=== PATIENT | male | born 1980 | race Caucasian/White ===

== ENCOUNTER 2020-03-01 12:54 | Emergency (ER) | payer OTHER, SELFPAY ==
[2020-03-01 13:12] VITALS: BP 139/74; PULSE 83; RESP 17; TEMP 37; O2SAT 96; BMI 21.9
--- NOTE | 2020-03-01 13:15 | ED.SKABFB ---
HPI - Skin/Abscess/Foreign Bdy General Chief complaint: Skin/Abscess/Foreign Body Stated complaint: growth on nose,headache Time Seen by Provider: 03/01/20 13:08 Source: patient Mode of arrival: ambulatory Limitations: no limitations History of Present Illness HPI narrative: bump to bridge of the nose x several months but now more painful, swollen and tender. No fever/chills. Trying warm compresses with no improvement. Related Data Allergies Allergy/AdvReac Type Severity Reaction Status Date / Time No Known Allergies Allergy Verified 03/01/20 13:15 Review of Systems Review of Systems: Yes all other systems are reviewed and are negative Constitutional: Constitutional: Reports no additional constitutional complaints, Denies body ache(s), Denies chills, Denies fever(s), Denies headache(s) and Denies weakness Eyes: Eyes: Reports no additional eye complaints and Denies change in vision ENT: Reports system reviewed and no additional complaints, except as documented, Denies dizziness, Denies headache(s), Denies nasal congestion, Denies nasal discharge and Denies neck pain Cardiovascular: Cardiovascular: Reports no additional cardiovascular complaints, Denies chest pain, Denies leg edema and Denies dyspnea Respiratory: Respiratory: Reports no additional respiratory complaints, Denies cough and Denies dyspnea Gastrointestinal: Gastrointestinal: Reports no additional gastrointestinal complaints, Denies abdominal pain, Denies diarrhea, Denies nausea and Denies vomiting Genitourinary: Genitourinary: Denies urinary incontinence Musculoskeletal: Musculoskeletal: Reports no additional musculoskeletal complaints, Denies back pain, Denies arthralgias, Denies joint swelling, Denies neck pain, Denies numbness and Denies tingling Integumentary/Breasts: Skin/Breast: Reports system reviewed and no additional complaints, except as docu and Denies rash Neurologic: Reports system reviewed and no additional complaints, except as documented, Denies Abnormal speech present, Denies dizziness, Denies headache(s), Denies numbness, Denies tingling and Denies weakness PMFSH Past Medical History Attestation statement: The following information was validated with the patient. Source: obtained from family and nursing notes reviewed Medical History No known health problems Social History Social History Advance Directives: No Advance Directives Information Provided: Yes Physical Exam Vital Signs and I&O and Narrative: Vital Signs and I&O: Vital Signs Temp 98.6 F 03/01/20 13:12 Pulse 83 03/01/20 13:12 Resp 17 03/01/20 13:12 BP 139/74 03/01/20 13:12 Pulse Ox 96 03/01/20 13:12 Intake & Output 02/29/20 03/01/20 03/01/20 18:59 06:59 18:59 Weight 63.503 kg Body Mass Index 21.9 Const: General: cooperative, healthy appearing, comfortable and no acute distress Orientation/consciousness: patient oriented x3 Limitations: no limitations HENMT: Head: Yes normal to inspection Ears: hearing grossly normal bilaterally General nose exam: Normal external nose present Face and sinus: Yes normal facial exam Mouth: Normal oral and palatal mucosa present Throat: Yes posterior oropharynx normal Eyes: General: appearance normal, both eyes and all related structures Pupils: Equal, round and reactive pupils present Neck: Neck: Yes normal visual inspection Chest: Chest palpation & inspection: normal inspection of the chest Resp: Effort & Inspection: normal respiratory effort Auscultation: clear to auscultation bilaterally Cardio: Rate: regular rate Rhythm: regular rhythm Peripheral pulses: Peripheral pulses 2+ throughout GI: Inspection: Yes normal to inspection Palpation (GI): Soft to palpation and nontender Auscultation: normal bowel sounds Back/Spine/Pelvis: Thoracic/Lumbar Spine: thoracic and lumbar spine normal to inspection Skin: Other: To the bridge of the nose there is a circular lump which is firm with mild erythema and tenderness. Not fluctuant. Approximately 2-3 mm in size. General skin exam: no rashes or lesions noted Neuro: General: patient oriented x3, no focal motor deficits and normal sensation to monofilament Cranial nerves: Yes Equal, round and reactive pupils present Cognition (Neuro): normal cognition Speech: No Abnormal speech present Gait exam (Neuro): Normal gait present Motor exam (neuro): 5/5 motor strength present throughout Extrem: General: Yes normal to inspection Procedures Abscess I/D Site: face Local Anesthetic: lidocaine 2% Technique: incised with blade Sent for culture/gram staining?: No Irrigation: Yes Packing used?: none MDM - Skin/Abscess/Foreign Bdy MDM Narrative Medical decision making narrative: See I and D note. More of a sebaceous cyst. Discussed with patient may recur. He can follow-up with surgery of this does happen. Reviewed worrisome signs and symptoms and when to return to the emergency department. Comfortable discharge home. Discharge Plan Discharge Clinical Impression: Sebaceous cyst Patient Disposition: Home, Self-Care Instructions: Cyst (ED) Additional Instructions: Apply antibiotic ointment daily and keep covered for 2-3 days with a bandaid This may reoccur and if that does you may see a surgeon Referrals: Malena Luevano MD [Physician] - 2 days (only if it happens again) Interventions: ED Discharge Assessment Last Done: 03/01/20 13:56 Discharge Date/Time: 03/01/20 14:06
[2020-03-01] MEDS: Lidocaine HCl 2 % MPF 5 ML VIAL SUBCUT (13:21)
== END 2020-03-01 14:06 | disposition home or self-care (01) ==
PROVIDERS: Emergency Provider Internal Medicine; PCP Pediatrics
DX: L72.3 Sebaceous cyst (principal)
CPT/HCPCS: 10060; 99283; 99284

== ENCOUNTER 2021-01-31 09:25 | Emergency (ER) | payer OTHER, SELFPAY ==
[2021-01-31 09:37] VITALS: BP 109/79; PULSE 65; RESP 18; TEMP 36.6; O2SAT 98; BMI 24.3
--- NOTE | 2021-01-31 09:44 | ED.SKABFB ---
HPI - Skin/Abscess/Foreign Bdy General Chief complaint: Skin/Abscess/Foreign Body Stated complaint: EYE INFECTION Time Seen by Provider: 01/31/21 09:44 Source: patient Mode of arrival: ambulatory Limitations: no limitations History of Present Illness HPI narrative: 41 y/o male presents with a painful cyst on the upper bridge of his nose. He has had a small cyst in that area for several years. He reports over the last 4 days it has gotten significantly bigger, more tender and red. No fevers. Never been infected before. MD complaint: abscess/boil Onset (ago): day(s) (4) Tetanus up to date: yes Location: face Severity: moderate Severity scale (1-10): 6 Quality: aching Pain Consistency: constant Relieving factors: other (warm compresses) Exacerbating factors: palpation Context: none Associated symptoms: denies other symptoms Treatments prior to arrival: attempted to drain pus at home Related Data Previous Rx's Medication Instructions Recorded cephalexin 500 mg capsule 500 mg PO Q6H 7 Days #28 cap 01/31/21 Allergies Allergy/AdvReac Type Severity Reaction Status Date / Time No Known Allergies Allergy Verified 03/01/20 13:15 Review of Systems Review of Systems: Constitutional: No Fever, No Chills Eyes: No Eye Pain, No Swelling, No Redness Cardiovascular: No Chest Pain, No SOB Respiratory: No Cough, No Sputum Gastrointestinal: No Nausea, No Vomiting Musculoskeletal: No joint pain, No Myalgias Skin: + Skin Lesions, No rash Neuro: No Dizziness, No Headache Heme/Lymph: No Bruising PMFSH Past Medical History Medical History No known health problems Social History Social History Advance Directives: No Physical Exam Vital Signs: Vital Signs: Last Vital Signs Temp 97.8 F 01/31/21 09:37 Pulse 65 01/31/21 09:37 Resp 18 01/31/21 09:37 BP 109/79 01/31/21 09:37 Pulse Ox 98 01/31/21 09:37 Body Mass Index 24.3 Appearance: Alert. Oriented X3. No acute distress. HEENT: upper bridge of the nose on the left side is a 1.5 cm tender raised lesion with central fluctuance, overlying erythema and warmth. CVS: Normal heart rate and rhythm. Pulses normal. Respiratory: No respiratory distress. Speaks in complete sentences Skin: Skin warm and dry. Normal skin color. Normal skin turgor. No rashes. Extremities: atraumatic, no swelling Neuro: Oriented X 3. No motor deficit. No sensory deficit. Course Course Course Narrative: 41 y/o male presents with tender, red lesion on the bridge of his nose x4 days. Exam is consistent with infected sebaceous cyst. Requesting I&D. Counseled on need for Derm follow up for possible excision. Given there appears to be infection will drain and start abx for mild cellulitis. Reevaluation(s) Reevaluation #1: Tolerated well. Stable for d/c home with abx and derm f/u. Procedures Abscess I/D Site: face Local Anesthetic: lidocaine 2% Amount of anesthesia used (mL): 1 Technique: incised with blade Sent for culture/gram staining?: No Irrigation: Yes Packing used?: none Complications: bleeding Critical Care Time Critical Care Time Critical Care Time: No Discharge Plan Discharge Clinical Impression: Abscess of skin or subcutaneous tissue Qualifiers: Site of cutaneous abscess: face Qualified Code(s): L02.01 - Cutaneous abscess of face Patient Disposition: Home, Self-Care Instructions: Abscess Incision and Drainage (DC) Additional Instructions: Take the prescribed antibiotic as directed. Continue to use warm compresses to the area several times per day. Recommend following up with a Photo Tube As[employer]er for further evaluation and possible excision. If you develop worsening pain, swelling, redness, or develop fevers come back to the ER for further evaluation. Prescriptions: New cephalexin 500 mg capsule 500 mg PO Q6H 7 Days Qty: 28 RF: 0 Referrals: Gricel Cooper PA-C [[facility]] - 2 weeks (infected cyst)
[2021-01-31] MEDS: Lidocaine HCl 2 % MPF 5 ML VIAL INFILTRATI (09:55)
== END 2021-01-31 10:21 | disposition home or self-care (01) ==
PROVIDERS: Emergency Provider Emergency Medicine
DX: J34.0 Abscess, furuncle and carbuncle of nose (principal)
CPT/HCPCS: 10060; 99283; 99284

== ENCOUNTER 2021-02-11 08:42 | Emergency (ER) | payer OTHER, SELFPAY ==
--- NOTE | ~2021-02-11 | XR_ITS ---
EXAMINATION: XR FOOT, LEFT CLINICAL INFORMATION: Pain COMPARISON: None TECHNIQUE: AP, lateral, and oblique views of the left foot. FINDINGS: There is no evidence of acute fracture or dislocation of the left foot. Left foot joint spaces are maintained. No significant soft tissue swelling appreciated. XR/XR foot LT min 3V IMPRESSION: No acute fracture or dislocation of the left foot.
[2021-02-11 08:45] VITALS: BP 115/69; PULSE 77; RESP 18; TEMP 36.9; O2SAT 97; BMI 23.5
--- NOTE | 2021-02-11 09:30 | ED_ITS ---
HPI - Extremity Injury (Lower) General Chief Complaint: Extremity Problem Stated Complaint: lt ft toe pain Time Seen by Provider: 02/11/21 09:27 Source: patient Mode of arrival: ambulatory Limitations: no limitations History of Present Illness complaint: foot injury Injury: Right: foot and toes (Second and 3rd toes) Type of Injury: other (Twist injury) Place: street/outdoors Severity: moderate Relieving factors: NSAID (Mild relief with NSAIDs) Exacerbating factors: weight bearing, movement and palpation Context: running Associated symptoms: swelling and ambulatory Other symptoms: none Treatments prior to arrival: NSAIDS Related Data Previous Rx's Medication Instructions Recorded cephalexin 500 mg capsule 500 mg PO Q6H 7 Days #28 cap 01/31/21 Allergies Allergy/AdvReac Type Severity Reaction Status Date / Time No Known Allergies Allergy Verified 03/01/20 13:15 Review of Systems Review of Systems: Constitutional : No Weight loss, No Fever, No Chills, No Night Sweats, No Fatigue, No Malaise ENT/Mouth : No Hearing loss, No Ear Pain, No Nasal Congestion, No Sinus Pain, No Hoarseness, No sore throat, No Rhinorrhea, No Swallowing Difficulty Eyes: No Eye Pain, No Swelling, No Redness, No Foreign Body, No Discharge, No Vision Changes Cardiovascular : No Chest Pain, No SOB, No Dyspnea on Exertion, No Orthopnea, No Edema, No Palpitations Respiratory : No Cough, No Sputum, No Wheezing, No Smoke Exposure, No Dyspnea Gastrointestinal : No Nausea, No Vomiting, No Diarrhea, No Constipation, No abdominal Pain, No Hematochezia, No Melena Genitourinary : no irregular bleeding, No Dysuria, No Urinary Frequency, No Hematuria, No Urinary Incontinence, No Urgency, No Flank Pain, No Urinary Flow Changes, No Hesitancy Musculoskeletal : Positive right foot/toes joint pain, No Myalgias, No Joint Swelling Skin : No Skin Lesions, No rash Neuro : No Weakness, No Numbness, No Paresthesias, No Loss of Consciousness, No Dizziness, No Headache Psych : No Anxiety/Panic, No Depression, No SI/HI/AH/VH, No Social Issues, Heme/Lymph: No Bruising, No Bleeding,No Lymphadenopathy Endocrine : No Polyuria, No Polydipsia, No Temperature Intolerance Yes all other systems are reviewed and are negative [facility] Past Medical History Attestation statement: The following information was validated with the patient. Medical History No known health problems Social History Social History Advance Directives: No Advance Directives Information Provided: No Physical Exam Vital Signs: Vital Signs: Last Vital Signs Temp 98.4 F 02/11/21 08:45 Pulse 77 02/11/21 08:45 Resp 18 02/11/21 08:45 BP 115/69 02/11/21 08:45 Pulse Ox 97 02/11/21 08:45 Body Mass Index 23.5 vital signs have been reviewed as normal and appeared to be correct. Blood pressure normal. Heart rate normal. Respiration rate normal. Temperature normal. Oxygen saturation normal. Appearance: Alert. Oriented X3. No acute distress. Head: Normal external exam. Normocephalic. Atraumatic. Eyes: PERRLA. EOMI. Conjunctiva and sclera normal. Eyelids normal. ENT: Pharynx normal. Uvula midline. Neck: Normal inspection. Neck supple. FROM. CVS: Normal heart rate and rhythm. Respiratory: No respiratory distress. Painless inspiration. Back: Full range of motion noted. No rashes/lesion/induration/fluctuance or signs of infection noted. Skin: Skin warm and dry. Normal skin color. Normal skin turgor. No rashes/ lesions/lacerations noted. Extremities: Patient with tenderness so patient to left foot at 2/3 digits with ecchymosis noted. Patient with mild tenderness of patient to calcaneus aspect of the left foot. No obvious deformities. Patient has full range of motion of all toe/foot and ankle joint. No obvious ligamentous injury is noted. Achilles tendon is intact negative Treviño test. No signs of infection. Otherwise all other extremities exhibit normal range of motion and nontender. Neuro: Oriented X 3. No motor deficit. No sensory deficit. Reflexes normal. Normal steady gait. No focal neuro deficits noted. Vascular: + radial pulses/+ 2 distal pedal pulses/+2 dorsalis pedis b/l. Normal cap refill. No cyanosis noted to upper extremity nails and lower extremity toes nails. Course Course Course Narrative: 41-year-old male presenting to the ED with complaints of left 2/3 digit toe pain and calcaneus pain after he had a twist injury when he was running on Thursday since then has been having pain and ecchymosis. He has been taking Motrin and provides mild relief. Denies any other injuries complaints or concerns at this time. On exam patient has tenderness palpation to left foot at the 2/3 digits and calcaneus aspect no obvious deformities and patient has full range of motion. No signs of infection and no ligamentous injury or tendon rupture. Achilles tendon is intact. X-ray obtained and negative for any acute processes. Patient most likely left foot sprain strain with ecchymosis. Will DC home with symptomatic treatment instructions return if any new or worsening symptoms to follow up with primary care provider. Patient understands agrees with this plan. MDM - Extremity Injury (Lower) Medical Records Attestation: I reviewed the patient's medical records. Imaging Data Left foot x-ray: Attestation: I personally reviewed and interpreted this imaging study as follows: Radiologist's impression: FINDINGS: There is no evidence of acute fracture or dislocation of the left foot. Left foot joint spaces are maintained. No significant soft tissue swelling appreciated.? XR/XR foot LT min 3V IMPRESSION: No acute fracture or dislocation of the left foot. Discharge Plan Discharge Clinical Impression: Sprain of foot, left, Traumatic ecchymosis of left foot Patient Disposition: Home, Self-Care Instructions: Foot Sprain (ED), Foot Contusion (ED) Prescriptions: No Action cephalexin 500 mg capsule 500 mg PO Q6H 7 Days Qty: 28 RF: 0 Referrals: Ad Sharp MD [Primary Care Provider] - 2 days Stand Alone Forms: Work/School Release Print Language: Khmer
== END 2021-02-11 10:14 | disposition home or self-care (01) ==
PROVIDERS: Emergency Provider Emergency Medicine Emergency Medical Services; PCP Pediatrics
DX: S93.602A Unspecified sprain of left foot, initial encounter (principal); S90.32XA Contusion of left foot, initial encounter; M79.672 Pain in left foot; X58.XXXA Exposure to other specified factors, initial encounter; Y93.9 Activity, unspecified; Y92.9 Unspecified place or not applicable; Y99.9 Unspecified external cause status; Z79.899 Other long term (current) drug therapy
CPT/HCPCS: 73630; 99283

== ENCOUNTER 2021-03-29 08:06 | Emergency (ER) | payer OTHER, SELFPAY ==
[2021-03-29 08:28] VITALS: BP 117/81; PULSE 70; RESP 18; TEMP 36.6; O2SAT 97; BMI 23.6
[2021-03-29 08:50] LABS: MANUAL DIFF FLAG NO
[2021-03-29] MEDS: Lidocaine HCl Viscous 2 % 15 ML SOLUTION MUCOUS MEM (08:51)
[2021-03-29] MEDS: PHENobarb/Hyoscy/Atropine/Scop 10 ML ELIXIR PO (08:51)
[2021-03-29] MEDS: Magnesium Hydrox/Alum Hydrox 30 ML ORAL.SUSP PO (08:51)
[2021-03-29] MEDS: Famotidine/PF 20 MG/2 ML VIAL IVPUSH (08:51)
[2021-03-29 08:53] LABS: Basophils Absolute Auto 0.1 X10*3/uL (0.0-0.2); Basophils Percent Auto 0.9 % (0-2); Eosinophils Absolute Auto 0.3 X10*3/uL (0.0-0.4); Eosinophils Percent Auto 4.7 % (0-4); Hematocrit 39.3 % (42.0-52.0); Hemoglobin 13.5 g/dl (14.0-18.0); Imm Gran Abs Auto 0.01 X10*3/uL (0.00-0.03); Imm Gran Pct Auto 0.2 % (0.0-0.4); Lymphocytes Absolute Auto 1.5 X10*3/uL (1.2-4.9); Lymphocytes Percent Auto 26.4 % (20-40); Mean Corpuscular HGB Conc 34.4 g/dl (31.0-36.0); Mean Corpuscular Hemoglobin 30.1 pg (27.0-33.0); Mean Corpuscular Volume 87.7 fL (80.0-98.0); Mean Platelet Volume 8.7 fL (9.4-12.4); Monocytes Absolute Auto 0.4 X10*3/uL (0.1-1.2); Monocytes Percent Auto 7.7 % (2-11); Neutrophils Absolute Auto 3.5 x10*3/uL (2.0-8.3); Neutrophils Percent Auto 60.1 % (45-73); Platelet Count 281 X10*3/uL (160-400); Red Blood Count 4.48 X10*6/uL (4.60-5.80); Red Cell Distribution Width 11.9 % (11.0-16.0); White Blood Count 5.8 X10*3/uL (4.8-10.8)
[2021-03-29 09:07] LABS: Alanine Aminotransferase 12 U/L (0-40); Albumin Level 4.3 g/dL (3.5-5.0); Alkaline Phosphatase 64 U/L (39-117); Anion Gap 10 (12-20); Aspartate Amino Transferase 20 U/L (5-37); Bilirubin Direct 0.2 mg/dL (0.0-0.5); Bilirubin Total 0.4 mg/dL (0.0-1.0); Blood Urea Nitrogen 10 mg/dL (9-16); Calcium 9.1 mg/dL (8.4-10.2); Carbon Dioxide 25 mmol/L (22-29); Chloride 107 mmol/L (96-108); Creatinine Clr Calc Pharmacy 118.4; Estimated Glomerular Filt Rate > 60; Glucose Random 113 mg/dL (60-115); Lipase 26 U/L (8-78); Potassium 4.3 mmol/L (3.3-5.1); Sodium 138 mmol/L (135-145); Total Protein 6.7 g/dL (6.5-8.0)
--- NOTE | 2021-03-29 09:17 | ED.ABDPAIN ---
HPI - Abdominal Pain General Chief Complaint: Abdominal Pain Stated Complaint: abd pain Time Seen by Provider: 03/29/21 08:29 Source: patient Mode of arrival: ambulatory Limitations: no limitations History of Present Illness HPI narrative: 41-year-old male past medical history of GERD presents to the ED for right upper quadrant discomfort described as acid burning sensation with slight nausea. Patient having symptoms for the past 4 days. denies any fever, chills, lower abdominal pain, or any decrease in appetite. Patient denies any chest pain or shortness of breath. Patient denies any recent trauma. Related Data Home Medications Medication Instructions Recorded Confirmed buprenorphine 2 mg-naloxone 0.5 mg 1 strip SUBLINGUAL DAILY 03/29/21 03/29/21 sublingual film (Suboxone) Previous Rx's Medication Instructions Recorded cephalexin 500 mg capsule 500 mg PO Q6H 7 Days #28 cap 01/31/21 famotidine 20 mg tablet (Pepcid) 20 mg PO BID 20 Days #40 tab 03/29/21 Allergies Allergy/AdvReac Type Severity Reaction Status Date / Time No Known Allergies Allergy Verified 03/01/20 13:15 Review of Systems Review of Systems Yes all other systems are reviewed and are negative Constitutional: Reports as per HPI and Reports no additional constitutional complaints Eyes: Reports as per HPI and Reports no additional eye complaints Reports system reviewed and no additional complaints, except as documented and Reports as per HPI Cardiovascular: Reports as per HPI and Reports no additional cardiovascular complaints Respiratory: Reports as per HPI and Reports no additional respiratory complaints Gastrointestinal: Reports as per HPI, Reports no additional gastrointestinal complaints, Reports abdominal pain (Right upper quadrant) and Reports heartburn Genitourinary: Reports no additional male genitourinary complaints and Reports as per HPI Musculoskeletal: Reports no additional musculoskeletal complaints and Reports as per HPI Reports system reviewed and no additional complaints, except as documented and Reports as per HPI Psychiatric: Reports no additional psychiatric complaints and Reports as per HPI Physical Exam Vital Signs: Vital Signs: Last Vital Signs Temp 98.6 F 03/29/21 09:19 Pulse 51 03/29/21 09:19 Resp 14 03/29/21 09:19 BP 106/71 03/29/21 09:19 Pulse Ox 97 03/29/21 09:19 Body Mass Index 23.6 Const: General: cooperative, healthy appearing, comfortable, no acute distress, well developed, alert, awake and Physically active Orientation/consciousness: patient oriented x3 HENMT: Head: Yes normal to inspection, Yes No palpable skull fracture present, Yes normocephalic, Yes atraumatic and No abrasion Eyes: General: appearance normal, both eyes and all related structures Neck: Neck: Yes normal visual inspection, Yes full ROM, Yes no lymphadenopathy, Yes no meningeal signs, Yes trachea midline, Yes supple and No tender Chest: Chest palpation & inspection: normal inspection of the chest and normal palpation of entire chest wall Resp: Effort & Inspection: normal respiratory effort and able to speak in complete sentences Cardio: Jugular venous distension: no JVD Heart sounds: S1 normal heart sound present and S2 normal heart sound present GI: Inspection: Yes normal to inspection and No abdominal wall ecchymosis Palpation (GI): Soft to palpation, not firm, nontender, no guarding and not rigid : General: No CVA tenderness and Yes no CVA tenderness Back/Spine/Pelvis: Back: no CVA tenderness, No CVA tenderness and No back tenderness Skin: General skin exam: no rashes or lesions noted and elasticity normal Neuro: General: patient oriented x3, gait normal, no meningeal signs and CN's II-XI intact bilaterally Cranial nerves: Yes CN's II-XII intact bilaterally Extrem: General: Yes normal to inspection and Yes full ROM Psych: Appearance: grossly normal, well kempt and not disheveled Course Course Course Narrative: Patient does not have any abdominal tenderness. Right upper quadrant ultrasound bedside negative for any gallstones. Will treat as GERD. Labs ordered. Reevaluation(s) Reevaluation #1: Patient labs are normal. Liver and lipase normal. Abdomen re-evaluated and negative for any tenderness, rebound tenderness, Melton sign, McBurney, roving signs, guarding, rigidity, psoas, or obturator's sign. Patient feels better after GI cocktail. Patient to be discharged. Not suspect any cardiac etiology. No CT scan indicated. Time: 10:14 MDM - Abdominal Pain MDM Narrative Medical decision making narrative: GERD Lab Data Result diagrams: 03/29/21 08:43 03/29/21 08:43 Labs: Lab Results 03/29/21 03/29/21 Range/Units 08:43 08:43 WBC 5.8 (4.8-10.8) X10*3/uL RBC 4.48 L (4.60-5.80) X10*6/uL Hgb 13.5 L (14.0-18.0) g/dl Hct 39.3 L (42.0-52.0) % MCV 87.7 (80.0-98.0) fL MCH 30.1 (27.0-33.0) pg MCHC 34.4 (31.0-36.0) g/dl RDW 11.9 (11.0-16.0) % Plt Count 281 (160-400) X10*3/uL MPV 8.7 L (9.4-12.4) fL Immature Gran % (Auto) 0.2 (0.0-0.4) % Neut % (Auto) 60.1 (45-73) % Lymph % (Auto) 26.4 (20-40) % [place] % (Auto) 7.7 (2-11) % Eos % (Auto) 4.7 H (0-4) % Baso % (Auto) 0.9 (0-2) % Lymph # (Auto) 1.5 (1.2-4.9) X10*3/uL [place] # (Auto) 0.4 (0.1-1.2) X10*3/uL Eos # (Auto) 0.3 (0.0-0.4) X10*3/uL Baso # (Auto) 0.1 (0.0-0.2) X10*3/uL Abs Immat Gran (auto) 0.01 (0.00-0.03) X10*3/uL Absolute Neuts (auto) 3.5 (2.0-8.3) x10*3/uL Absolute Nucleated RBC 0.000 (0.0-0.012) X10*3/uL Nucleated RBC % (auto) 0.0 (0.0-0.2) /100WBC Sodium 138 (135-145) mmol/L Potassium 4.3 (3.3-5.1) mmol/L Chloride 107 (96-108) mmol/L Carbon Dioxide 25 (22-29) mmol/L Anion Gap 10 L (12-20) BUN 10 (9-16) mg/dL Creatinine 0.81 (0.5-1.4) mg/dL Estim Creat Clear Calc 118.4 Estimated GFR > 60 Random Glucose 113 (60-115) mg/dL Calcium 9.1 (8.4-10.2) mg/dL Total Bilirubin 0.4 (0.0-1.0) mg/dL Direct Bilirubin 0.2 (0.0-0.5) mg/dL AST 20 (5-37) U/L ALT 12 (0-40) U/L Alkaline Phosphatase 64 (39-117) U/L Total Protein 6.7 (6.5-8.0) g/dL Albumin 4.3 (3.5-5.0) g/dL Lipase 26 (8-78) U/L Discharge Plan Discharge Clinical Impression: Gastroesophageal reflux disease Patient Disposition: Home, Self-Care Instructions: Gastroesophageal Reflux Disease (ED) Additional Instructions: Return to the ED for worsening abdominal pain, green emesis, chest pain, shortness of breath, fever, chills, nausea, vomiting, lower abdominal pain, dysuria, hematuria, flank pain, or any other concerning symptoms. Please follow-up with primary care provider Prescriptions: New famotidine [Pepcid] 20 mg tablet 20 mg PO BID 20 Days Qty: 40 RF: 0 No Action cephalexin 500 mg capsule 500 mg PO Q6H 7 Days Qty: 28 RF: 0 buprenorphine-naloxone [Suboxone] 2-0.5 mg film 1 strip sublingual DAILY RF: 0 Interventions: ED Discharge Assessment Last Done: 03/29/21 10:46 Discharge Date/Time: 03/29/21 10:47 Print Language: Sami [facility] Past Medical History Medical History No known health problems Social History Social History Alcohol intake: never Patient Tobacco Use Status: Never used Tobacco Use of substances other than those prescribed or required for medical reasons: No Advance Directives: No
[2021-03-29 09:19] VITALS: BP 106/71; PULSE 51; RESP 14; TEMP 37; O2SAT 97
== END 2021-03-29 10:47 | disposition home or self-care (01) ==
PROVIDERS: Physician Assistant; Emergency Provider Emergency Medicine; PCP Pediatrics
DX: K21.9 Gastro-esophageal reflux disease without esophagitis (principal); R10.11 Right upper quadrant pain; R11.0 Nausea
CPT/HCPCS: 36415; 80053; 82248; 83690; 85025; 96374; 99284; 99285

== ENCOUNTER 2022-12-19 09:59 | Emergency (ER) | payer OTHER, SELFPAY ==
[2022-12-19 10:06] VITALS: BP 135/92; PULSE 82; RESP 18; TEMP 36.7; O2SAT 98; BMI 22.8
--- NOTE | 2022-12-19 10:30 | ED_ITS ---
HPI - General Adult General Chief complaint: General Medical Stated complaint: Hemorrhoidal Pain Time Seen by Provider: 12/19/22 10:27 Source: patient Mode of arrival: ambulatory Limitations: no limitations History of Present Illness HPI narrative: Patient is a 42 year old assigned male at with a history of opiate dependence (10 years sober) presenting to the emergency department today with a hemorrhoid. Patient states that over the last few days his hemorrhoid has gotten bigger and more painful. Patient denies any dizziness, lightheadedness, abdominal pain, nausea, vomiting, fever, chills, blurry vision, double vision, loss of vision, chest pain, difficulty breathing, shortness of breath, back pain, night sweats, pain with urination, increased urinary frequency, increased urinary urgency, blood in his urine, syncope or a near syncopal episode, recent trauma or falls, bowel incontinence, bladder incontinence, bowel retention, bladder retention, or any other complaints at this time. Onset (ago): day(s) Location: buttocks Radiation: non-radiation Severity: mild Severity scale (1-10): 3 Quality: aching and dull Pain Consistency: constant Relieving factors: none Exacerbating factors: none Associated symptoms: denies other symptoms Treatments prior to arrival: other (preparation H, Epsom bath) Related Data Home Medications Medication Instructions Recorded Confirmed buprenorphine 2 mg-naloxone 0.5 mg 1 strip sublingual DAILY 03/29/21 03/29/21 sublingual film (Suboxone) Previous Rx's Medication Instructions Recorded cephalexin 500 mg capsule 500 mg PO Q6H 7 days #28 caps 01/31/21 famotidine 20 mg tablet (Pepcid) 20 mg PO BID 20 days #40 tabs 03/29/21 Allergies Allergy/AdvReac Type Severity Reaction Status Date / Time No Known Allergies Allergy Verified 03/01/20 13:15 Review of Systems Constitutional: Constitutional: Reports no additional constitutional complaints, Denies chills, Denies fever(s) and Denies night sweats Eyes: Eyes: Reports no additional eye complaints, Denies blurry vision, Denies change in vision, Denies diplopia, Denies eye discharge, Denies loss of vision and Denies eye pain ENT: Denies dizziness Cardiovascular: Cardiovascular: Reports no additional cardiovascular complaints, Denies chest pain, Denies lightheadedness, Denies Loss of Consciousness and Denies dyspnea Respiratory: Respiratory: Reports no additional respiratory complaints and Denies dyspnea Gastrointestinal: Gastrointestinal: Reports no additional gastrointestinal complaints, Denies abdominal pain, Denies melena, Reports hematochezia, Denies change in bowel habits and Denies change in stool character Comments: large hemorrhoid Genitourinary: Genitourinary: Reports no additional male genitourinary complaints, Denies hematuria, Denies oliguria, Denies difficulty urinating, Denies dysuria, Denies urinary frequency, Denies urinary hesitancy, Denies urinary incontinence and Denies urinary urgency Musculoskeletal: Musculoskeletal: Reports no additional musculoskeletal complaints, Denies numbness and Denies tingling Neurologic: Denies dizziness, Denies loss of vision, Denies numbness and Denies tingling Psychiatric: Psychiatric: Reports no additional psychiatric complaints Endocrine: Endocrine: Reports no additional endocrine complaints Hematologic/Lymphatic: Hematologic/Lymphatic: Reports no additional hematologic/lymphatic complaints Allergic/Immunologic: Allergic/Immunologic: Reports no additional allergic/immunologic complaints PMFSH Past Medical History Attestation statement: The following information was validated with the patient. Source: old records reviewed and nursing notes reviewed Medical History No known health problems Social History Social History Alcohol intake: never Patient Tobacco Use Status: Never used Tobacco Advance Directives: No Advance Directives Information Provided: No Physical Exam ED Vital Signs: Vital Signs - 24 hr 12/19/22 10:06 Temperature 98.1 F Pulse Rate 82 Respiratory Rate 18 Blood Pressure 135/92 H Pulse Oximetry 98 Oxygen Delivery Method Room Air BMI result Body Mass Index 22.8 Const General: cooperative, no acute distress, alert and awake Nutritional Appearance: well nourished Orientation/consciousness: patient oriented x3 Limitations: no limitations HENMT Head: Yes normal to inspection and Yes atraumatic Ears: hearing grossly normal bilaterally and external ears normal General nose exam: Normal external nose present, no nasal discharge noted and no epistaxis Face and sinus: Yes normal facial exam, No abrasion and No laceration Mouth: Normal oral and palatal mucosa present, no drooling and no muffled voice Eyes General: appearance normal, both eyes and all related structures Periorbital: periorbital findings normal Eyelids: Yes eyelids normal Conjunctivae: conjunctivae normal Pupils: Equal, round and reactive pupils present EOM: EOMs intact bilaterally Neck Neck: Yes normal visual inspection, Yes full ROM and Yes no lymphadenopathy Chest Chest palpation & inspection: normal inspection of the chest Resp Effort & Inspection: normal respiratory effort and able to speak in complete sentences GI Inspection: Yes normal to inspection Rectal Exam - Male: Yes External hemorrhoid(s) present (large at the 10 o'clock position) Neuro General: patient oriented x3 and moves all extremities Cranial nerves: Yes Equal, round and reactive pupils present Cognition (Neuro): normal cognition Motor exam (neuro): 5/5 motor strength present throughout Sensory Exam: Normal double simultaneous stimulation for sensation Coordination: [id number] test normal Extrem General: Yes normal to inspection, Yes full ROM and Yes capillary refill normal Psych Appearance: grossly normal Mental Status: mental status grossly normal Affect: normal affect Attitude: cooperative Thought process: Normal thought process present Thought content: Normal thought content present Insight: Good insight present (Psych) Medical Decision Making Medical Decision Making MDM Narrative: Patient is a 42 year old assigned male at with a history of opiate dependance (10 years sober) presenting to the emergency department today with hemorrhoid pain. Patient's physical exam was as noted in the physical exam portion of this chart. I explained my physical exam findings to the patient. I answered all questions asked by the patient. I stressed the importance of the patient taking his medication as prescribed. I stressed the importance of the patient following up with his primary care provider and a general surgeon. I stressed the importance of the patient returning to the emergency department immediately if his symptoms were to worsen or if he were to develop any dizziness, shortness of breath, difficulty breathing, chest pain, blurry vision, loss of vision, nausea, vomiting, abdominal pain, fever, chills, back pain, or any other complaints. Patient verbalized agreement and understanding with this treatment plan and discharge. Differential Diagnosis Differential Diagnoses: The differential diagnosis associated with the presentation includes Hemorrhoid Discharge Plan Discharge Clinical Impression: Hemorrhoid Patient Disposition: Home, Self-Care Instructions: Hemorrhoids (DC) Additional Instructions: Follow up with your primary care provider and a general surgeon. Keep using the OTC treatment you have been using. Please refrain from straining when having a bowel movement. Return to the emergency department immediately if your symptoms worsen or if you develop any dizziness, shortness of breath, difficulty breathing, chest pain, blurry vision, loss of vision, nausea, vomiting, abdominal pain, fever, chills, back pain, or any other complaints. Prescriptions: No Action cephalexin 500 mg capsule 500 mg PO Q6H 7 Days Qty: 28 0RF buprenorphine-naloxone [Suboxone] 2-0.5 mg film 1 strip sublingual DAILY famotidine [Pepcid] 20 mg tablet 20 mg PO BID 20 Days Qty: 40 0RF Referrals: Ad Sharp MD [Primary Care Provider] - Interventions: ED Discharge Assessment Last Done: 12/19/22 11:21 Discharge Date/Time: 12/19/22 11:21 Print Language: [place]
== END 2022-12-19 11:21 | disposition home or self-care (01) ==
PROVIDERS: Emergency Provider Emergency Medicine Emergency Medical Services; PCP Pediatrics
DX: K64.9 Unspecified hemorrhoids (principal)
CPT/HCPCS: 99282

== ENCOUNTER 2024-10-06 12:14 | Emergency (ER) | payer OTHER, SELFPAY ==
[2024-10-06 12:19] VITALS: BP 123/91; PULSE 77; RESP 18; TEMP 36.8; O2SAT 97; BMI 24.4
--- NOTE | 2024-10-06 12:22 | ED_ITS ---
HPI - General Adult General Chief complaint: Eye Problems Stated complaint: r eye inj at work Time Seen by Provider: 10/06/24 14:20 Source: patient Mode of arrival: ambulatory Limitations: no limitations History of Present Illness ED Provider: Dr. Maurilio Cantu HPI narrative: 44-year-old male with no significant past medical history, last tetanus shot greater than 5 years prior who presents emergency department for evaluation of a right eye injury that occurred at work. Patient states that he was crying off a plastic piece of a smoke to talk to her when the piece flew off and struck him in the right eye. He developed blurred vision. He states that the blurred vision in his almost completely resolved but he is having significant right eye pain. The pain does not change with blinking removing his eye. He denies any other injury. Related Data Home Medications ?Medication ?Instructions ?Recorded ?Confirmed buprenorphine 2 mg-naloxone 0.5 mg 1 strip sublingual DAILY 03/29/21 03/29/21 sublingual film (Suboxone) Previous Rx's ?Medication ?Instructions ?Recorded cephalexin 500 mg capsule 500 mg PO Q6H 7 days #28 caps 01/31/21 famotidine 20 mg tablet (Pepcid) 20 mg PO BID 20 days #40 tabs 03/29/21 sulfacetamide sodium 10 % eye drops 2 drp ophthalmic-Right Q4H corneal 10/06/24 abrasion #15 mL Allergies Allergy/AdvReac Type Severity Reaction Status Date / Time No Known Allergies Allergy Verified 10/06/24 12:22 [facility] Past Medical History Medical History No known health problems Social History Social History Alcohol intake: never Patient Tobacco Use Status: Never used Tobacco Physical Exam ED Vital Signs: Vital Signs - 24 hr 10/06/24 12:19 Temperature 98.2 F Pulse Rate 77 Respiratory Rate 18 Blood Pressure 123/91 H Pulse Oximetry 97 Oxygen Delivery Method Room Air BMI result Body Mass Index 24.4 Vital signs were normal Exam: Eye exam: Extraocular muscles were intact, no periorbital tenderness or periorbital ecchymosis Left eye: Normal Right eye: Sclera is injected, no foreign body seen in the sclera. No corneal foreign bodies noted, fluorescein dye exam and UV light exam revealed uptake at the 1 o'clock area of the cornea. Course Course Course Narrative: RME, this is a rapid medical exam performed by Marvin Vera please refer to primary provider for complete H&P- 44-year-old male presents for evaluation of right eye injury while he was at work. He was trying to pry off a piece of a smoke detector when it launched into his right eye. He has pain to the right eye but is able bit. On exam in his injected, there was no ulceration. Pupil is round, reactive to light and accommodation. There is a small abrasion to the upper eyelid. Plan for visual acuity testing and fluorescein staining Medical Decision Making Medical Decision Making MDM Narrative: 44-year-old male with no significant past medical history, last tetanus shot greater than 5 years prior who presents emergency department for evaluation of a right eye injury that occurred at work. Patient states that he was crying off a plastic piece of a smoke to talk to her when the piece flew off and struck him in the right eye. He developed blurred vision. He states that the blurred vision in his almost completely resolved but he is having significant right eye pain. The pain does not change with blinking removing his eye. He denies any other injury. Patient's visual acuity is the same in both eyes 20/25. I did not see any foreign body and the patient's eye. Patient's pain resolved 2 drops of tetracaine to the right eye. Patient does have fluorescein dye uptake the 1 o'clock area his right cornea Differential diagnosis: ?Includes but is not limited to corneal abrasion, corneal foreign body, globe injury Course: 15:15 Patient's presentation and physical exam are consistent with a corneal abrasion at the 1'clock area of the right cornea. Patient was treated with Bleph-10 drops, 2 drops into the right eye emergency department. He was given a prescription for Bleph 10 ophthalmic drops 2 drops every 4 hours while awake for 10 days. Patient will need to follow-up with our on-call tonnage compilation clerk, Dr. Kelley within 2-4 days for re-evaluation. Patient will also need to follow- up with our occupational health clinic, [facility] to get established into the worker's compensation system and to get further treatment. Admission/Observation Consideration of admission/observation: Escalation of care including admission/observation considered (No) Prescription Management I considered prescription management with: Antibiotic Bleph 10 ophthalmic antibiotic drops Discharge Plan Discharge Clinical Impression: Corneal abrasion, Need for Tdap vaccination, Work related injury Patient Disposition: Home, Self-Care Instructions: Corneal Abrasion (ED) Additional Instructions: Your visual acuity of your eyes were as follows: Right: 20/25 Left: 20/25 The pain in your eye resolved after getting a tetracaine drops into your right eye. This is consistent with an abrasion to your cornea. The fluorescein dye stain shows that you do have a corneal abrasion at approximately the 1 o'clock area (show the picture that I sent you to the tonnage compilation clerk). You received a tetanus, diptheria and pertussis vaccine ( Tdap). This vaccination is good for 5 years and he will not need a another tetanus shot until after 2029 for a contaminated cut . You will need a booster shot in 2034. Apply Bleph 10 (sulfacetamide) 2 drop every 4 hours while awake to the right eye for 10 days or until the tonnage compilation clerk tells you to stop these drops. Take ibuprofen 200 mg pills, 2 pills every 6 hours as needed for pain or fever. Take Tylenol (acetaminophen) 500 mg pills, 2 pills every 6 hours as needed for pain or fever. Call our tonnage compilation clerk, Dr. Kelley's today or tomorrow to try to get a follow-up appointment 2-4 days for re-evaluation. I want you to call our occupational health clinic [facility] today for re- evaluation and to help you get established with worker's compensation. You may need to use an occupational health clinic that your employer has a contract with. Because you are going to have difficulty seeing with this corneal abrasion, you can not return to work for 4 days or until the tonnage compilation clerk clears you to go back to work. Prescriptions: New sulfacetamide sodium 10 % drops 2 drp ophthalmic-Right Q4H Qty: 15 0RF No Action cephalexin 500 mg capsule 500 mg PO Q6H 7 Days Qty: 28 0RF buprenorphine-naloxone [Suboxone] 2-0.5 mg film 1 strip sublingual DAILY famotidine [Pepcid] 20 mg tablet 20 mg PO BID 20 Days Qty: 40 0RF Referrals: [facility] [Provider Group] - 5 days (Work-related injury, right corneal abrasion) Adrian Kelley [Physician] - 5 days (Right corneal abrasion) Stand Alone Forms: Work/School Release Print Language: Hebrew
[2024-10-06 14:31] VITALS: BP 128/83; PULSE 69; RESP 16; O2SAT 97
[2024-10-06] MEDS: Tetracaine HCl/PF 0.5% Oph Sol 4 ML DROPS 1 DROP EYE-RIGHT (14:54)
[2024-10-06] MEDS: Fluorescein Sodium STRIP 1 STRIP EYE-RIGHT (14:54)
[2024-10-06] MEDS: Ibuprofen 400 MG TABLET PO (15:06)
[2024-10-06] MEDS: Diphth,Pertus(ACell),Tet Adult 0.5 ML SYRINGE IM (15:06)
--- OUTSIDE RECORDS SUMMARY | 2024-10-06 15:29 | XMS_ITS | Clinical Summary ---
Author Organization [employer] Address [address] [place] [address] Care Team Providers Care Cheese Supervisor Name Role Phone Unavailable Primary Care Provider Unavailabl e Allergies No known active allergies Medications buprenorphine-n aloxone (Suboxone) 4-1 MG per sublingual film ALLOW 1 AND A HALF FILMS TO DISSOLVE UNDER THE TONGUE ONCE DAILY 10/01/2016 Active ibuprofen 600 MG tabletIndicatio ns:Dental abscess Take 1 tablet (600 mg) by mouth every 6 (six) hours if needed for mild pain for up to 20 doses. 20 tablet 10/05/2023 Active acetaminophen (Tylenol) 325 MG tablet 3 TABLET BY MOUTH EVERY 6 HOURS,X5 DAYS NEEDED FOR PAIN 12/21/2022 Active famotidine (Pepcid) 20 MG tablet Take 20 mg by mouth 2 times daily. 10/13/2023 Active hydrOXYzine pamoate (Vistaril) 25 MG capsule TAKE 1 CAPSULE BY MOUTH TWICE A DAY NEEDED FOR ANXIETY 10/15/2023 Active Social History Tobacco Use Types Packs/Day Years Used Date Smoking Tobacco: Every Day Cigarettes 1 10 Smokeless Tobacco: Never Tobacco Cessation:Ready to Q uit: No; Counseling Given: Not Answered Alcohol Use Standard Drinks/Week Comments Defer 0 (1 standard drink = 0.6 oz pur e alcohol) Sex and Gender Information Value Date Recorded Sex Assigned at Male 03/24/2022 10:25 AM EDT Legal Sex Male 10:25 AM EDT Gender Identity Male 09/11/2023 10:59 AM EDT Sexual Orientation Straight 09/11/2023 10 :59 AM EDT Last Filed Vital Signs Vital Sign Reading Time Taken Comments Blood Pressure 130/88 10/20/2023 11:09 AM EDT Pulse - - Temperature - - Respiratory Rate - - Oxygen Saturation - - Inhaled Oxygen Concentration - - Weight - - Height - - Body Mass Index - - Plan of Treatment Health Maintenance Due Date Last Done Comments Dental Oral Exam 1982 Dental Prophylaxis 1982 Dental X-Ray: Bitewings 1982 Depression Screening 1982 HIV Screening 1982 Lipid Panel 1982 SDOH Screening 1982 Alcohol/Substance Use Screening 1994 Family Planning (PISQ) 1997 Hepatitis C Screening 01/17/2000 Hepatitis B Vaccines (1 of 3 - 19+ 3-dose series) 2001 Pneumococcal Vaccine: Pediatrics (0 to 5 Years) and At-Risk Patients (6 to 49) Years) (1 of 2 - PCV) 2001 COVID-19 Vaccine (2 - 2023-2 5 season) 2024 10/03/2020 Influenza Vaccine (#1) 2024 0, 06/10/2012, 06/10/2012 Tobacco Screening 10/19/2024 10/20/2023 Dental X-Ray: Full Mouth 09/11/2026 024, 10/15/2016 Zoster Vaccines (1 of 2) 01/17/2032 DTaP/Tdap/Td Vaccines (3 - T d or Tdap) 12/06/2033 12/07/2023, 08/05/2012 RSV Patients and Patients Aged 60 years or older (1 - 1-dose 75+ series) 2057 HIB Vaccines Aged Out No longer eligi ble based on patient's age to complete this topic HPV Vaccines Aged Out No longer eligi ble based on patient's age to complete this topic Hepatitis A Vaccines Aged Out No long er eligible based on patient's age to complete this topic IPV Vaccines Aged Out No longer eligi ble based on patient's age to complete this topic Meningococcal B Vaccine Aged Out No l onger eligible based on patient's age to complete this topic Meningococcal Vaccine Aged Out No specner radha eligible based on patient's age to complete this topic RSV under 20 months Aged Out No longe r eligible based on patient's age to complete this topic Rotavirus Vaccines Aged Out No longer eligible based on patient's age to complete this topic Procedures Procedure Name Priority Date/Time Associated Diagnosis Comments PANORAMIC RADIOGRAPHIC IMAGE Routine 09/11/2023 11:30 AM EDT Odontogenic keratocyst of mandible Dental abscess from Last 3 Months or Most Recently Relevant to Health Maintenance [facility] [place] [address] [place] [address] [place] [address] [place] [address]
--- OUTSIDE RECORDS SUMMARY | 2024-10-06 15:29 | XMS_ITS | Encounter Summary ---
Author Organization [employer] Address [address] [place] [address] Care Team Providers Care Entry Engineer Name Role Phone Unavailable Primary Care Provider Unavailabl e Encounter Details Date Type Department Care Team (Late st Contact Info) Description 09/25/2023 Telephone [facility] [address] [place] [address] Jamilah Tsai DDS [address], [place] [phone] Social History Tobacco Use Types Packs/Day Years Used Date Smoking Tobacco: Every Day Cigarettes 1 10 Smokeless Tobacco: Never Alcohol Use Standard Drinks/Week Comments Defer 0 (1 standard drink = 0.6 oz pur e alcohol) Sex and Gender Information Value Date Recorded Sex Assigned at Male 03/24/2022 10:25 AM EDT Legal Sex Male 10:25 AM EDT Gender Identity Male 09/11/2023 10:59 AM EDT Sexual Orientation Straight 09/11/2023 10 :59 AM EDT documented as of this encounter Miscellaneous Notes * Telephone Encounter - Betty Barlow - 09/25/2023 11:11 AM EDT Patient asking if Dr Taveras can send him more medicine for the infection . documented in this encounter Plan of Treatment Not on file documented as of this encounter Visit Diagnoses Not on filedocumented in this encounter
[2024-10-06 16:12] VITALS: BP 130/78; PULSE 70; RESP 18; TEMP 36.6; O2SAT 97
[2024-10-06] MEDS: Sulfacetamide Sodium 10 % Oph 15 ML DRBTL 2 DROP EYE-RIGHT (16:26)
== END 2024-10-06 16:26 | disposition home or self-care (01) ==
PROVIDERS: Emergency Provider Emergency Medicine Emergency Medical Services; PCP Pediatrics
DX: S05.01XA Injury of conjunctiva and corneal abrasion without foreign body, right eye, initial encounter (principal); W26.9XXA Contact with unspecified sharp object(s), initial encounter; Y93.89 Activity, other specified; Y92.89 Other specified places as the place of occurrence of the external cause; Y99.0 Civilian activity done for income or pay; H53.8 Other visual disturbances; H57.11 Ocular pain, right eye; Z23 Encounter for immunization
CPT/HCPCS: 90471; 90715; 99284